=== PATIENT | male | born 1960 | race African-American/Black ===

== ENCOUNTER 2021-10-06 15:47 | Outpatient (CLI) | payer OTHER | END 2021-10-06 15:48 | disposition home or self-care (01) | LOC: NAV RAD 15:47 | PROVIDERS: ATTEND Family Medicine | DX: M25.561 Pain in right knee (principal); M47.816 Spondylosis without myelopathy or radiculopathy, lumbar region; M17.11 Unilateral primary osteoarthritis, right knee | CPT/HCPCS: 72100 ==